=== PATIENT | female | born 1995 | race African-American/Black ===

== ENCOUNTER → 2020-06-09 | Outpatient (CLI) | payer OTHER ==
--- NOTE | 2020-06-09 11:47 | ECGEPIP ---
[facility] Test Date: 2020-06-09 Pat Name: MEMO NAGEL Department: Room: - Gender: Female [employer] Lathe Operator: OSBALDO : 1995 Requested By: Other CDS - complete info on Order Number: [id number] Reading MD: Sameera De La Fuente Measurements Intervals Pitman Rate: 56 P: 3 IN: 156 QRS: 10 QRSD: 81 T: 30 QT: 381 QTc: 371 Interpretive Statements SINUS BRADYCARDIA NO PRIOR Electronically Signed on 06-09-2020 11:47:49 EDT by Sameera De La Fuente
[2020-06-09 11:49] LABS: HEMOGLOBIN 13.1 g/dl (12.0-15.5); MEAN CORPUSCULAR HEMOGLOBIN 26.6 pg (27.0-33.0); MEAN CORPUSCULAR VOLUME 83.3 fl (80.0-96.0); PLATELET COUNT, AUTOMATED 225 10^3/uL (150-450); RED BLOOD COUNT 4.92 10^6/uL (4.00-5.40); WHITE BLOOD COUNT 4.3 10^3/uL (4.0-10.0)
[2020-06-09 11:59] LABS: INR 0.93; PROTHROMBIN TIME 12.7 SECONDS (12.5-14.3)
[2020-06-09 12:00] LABS: PARTIAL THROMBOPLASTIN TIME 29.4 SECONDS (24.2-38.5)
[2020-06-09 12:30] LABS: ALBUMIN 3.6 GM/DL (3.2-5.2); ALT/SGPT 26 U/L (12-78); BILIRUBIN,TOTAL 0.5 MG/DL (0.2-1.0); BLOOD UREA NITROGEN 9 MG/DL (7-18); CALCIUM LEVEL 9.1 MG/DL (8.5-10.1); CARBON DIOXIDE LEVEL 26 MEQ/L (21-32); CHLORIDE LEVEL 105 MEQ/L (98-107); CREATININE FOR GFR 0.85 MG/DL (0.55-1.30); GLOMERULAR FILTRATION RATE > 60.0 (>60); GLUCOSE, FASTING 83 MG/DL (70-100); POTASSIUM SERUM 4.3 MEQ/L (3.5-5.1); SODIUM LEVEL 137 MEQ/L (136-145); TOTAL PROTEIN 7.6 GM/DL (6.4-8.2)
[2020-06-09 12:34] LABS: HEMOGLOBIN A1c 5.3 %
--- NOTE | 2020-06-09 12:51 | REP ---
INDICATION: PRE-OP SURGERY COMPARISON: None. TECHNIQUE: PA and lateral. FINDINGS: the mediastinum and cardiac silhouette are normal. The lung lemus are clear and without acute consolidation, effusion, or pneumothorax. The skeletal structures are intact and normal. IMPRESSION: No acute cardiopulmonary process <Electronically signed by Hosea Cervantes > 06/09/20 1248
[2020-06-09 16:05] LABS: HCG, SERUM QUALITATIVE NEGATIVE (NEGATIVE)
[2020-06-09 16:54] LABS: HEPATITIS C VIRUS ABY INDEX 0.1 INDEX (<0.8); HIV 1&2 SCREEN CENTAUR NEGATIVE (NEGATIVE)
== END ==
LOC: M LAB 11:01
DX: Z01.818 Encounter for other preprocedural examination (principal)